=== PATIENT | female | born 1965 | race Two or more races ===

== ENCOUNTER 2017-08-14 05:22 | Day surgery (SDC) | payer BC ==
[~2017-08-14] VITALS: Ht 152.4 cm; Wt 69.3 kg
[2017-08-14] MEDS ORDERED: LACTATED RINGERS 1,000 ML IV SCH (06:14)
[2017-08-14 06:43] VITALS: BP 167/85
[2017-08-14] MEDS ORDERED: CHOL3000 PO (06:43)
[2017-08-14] MEDS ORDERED: ASPI-496 PO (06:43)
[2017-08-14] MEDS ORDERED: SIMV20TA3 PO (06:43)
[2017-08-14] MEDS ORDERED: OMEG1CAP23 PO (06:43)
[2017-08-14] MEDS ORDERED: OLME20TA19 PO (06:43)
[2017-08-14] MEDS ORDERED: METF500T4 PO (06:43)
[2017-08-14] MEDS ORDERED: PROPOFOL 10 MG/ML, 20ML ONE ×2 (08:17→08:21)
[2017-08-14] MEDS ORDERED: MIDAZOLAM 1 MG/ML, 2ML ONE (08:26)
[2017-08-14] MEDS ORDERED: KETOROLAC 30 MG/1 ML IV PRN (09:00)
[2017-08-14] MEDS ORDERED: HYDROmorphone 1 MG/ML, 1ML IV PRN (09:00)
[2017-08-14] MEDS ORDERED: FENTANYL PF 100 MCG/2ML IV PRN (09:00)
[2017-08-14] MEDS ORDERED: hydrALAzine 20 MG/ML, 1ML IV PRN (09:00)
[2017-08-14] MEDS ORDERED: LABETALOL 5MG/ML, 20ML IV PRN (09:00)
[2017-08-14] MEDS ORDERED: MEPERIDINE/PF 25MG/0.5ML IVPush PRN (09:00)
[2017-08-14] MEDS ORDERED: ACETAMINOPHEN 325 MG TABLET PO PRN (09:00)
[2017-08-14] MEDS ORDERED: EPHEDRINE 50 MG/ML, 1ML IVPush PRN (09:00)
[2017-08-14] MEDS ORDERED: ALBUTEROL SULFATE 2.5 MG/3 ML NPPB PRN (09:00)
[2017-08-14] MEDS ORDERED: METOPROLOL 1 MG/ML, 5ML IV PRN (09:00)
[2017-08-14] MEDS ORDERED: METOCLOPRAMIDE 5 MG/ML, 2ML IV PRN (09:00)
[2017-08-14] MEDS ORDERED: ONDANSETRON 2MG/ML, 2ML IVPush PRN (09:00)
== END 2017-08-14 10:55 ==
LOC: OUT 05:22
PROVIDERS: ATTEND Internal Medicine Gastroenterology
DX: Z12.11 Encounter for screening for malignant neoplasm of colon (principal); K64.8 Other hemorrhoids; I10 Essential (primary) hypertension
CPT/HCPCS: 45378; 93005; J2250; J2704; J7120